=== PATIENT | male | born 1975 | race Caucasian/White ===

== ENCOUNTER 2020-05-29 10:46 | Outpatient (CLI) | payer BC ==
--- NOTE | 2020-05-29 11:42 | MRI ---
MRI lumbar spine noncontrast: HISTORY: Radiculopathy, left-sided with radiation down the left leg and to the left knee. Associated pain. Sta tus post lifting injury and twisting injury. COMPARISON: None FINDINGS: Appropriate T1 marrow signal intensity of the lumbar vertebra. Lumbar spine vertebral body height is maintained. There is no fracture. There is no significant STIR hyperintensity to suggest ligamentous injury or vertebral body edema. Straightening of lumbar lordosis is presumed to be positi onal Appropriate signal intensity in the visualized paraspinal muscles and solid organs. Conus medullaris terminates at the superior aspect of L1. T12-L1:Adequate disc hydration. No posterior disc abnormality. No significant central canal stenosis. Patent bilateral neural foramina. L1-L2:Adequate disc hydration. No posterior disc abnormalities. No significant central canal stenosis . Patent bilateral neural foramina. L2-L3:Adequate disc hydration. No posterior disc abnormality. No significant central canal stenosis. Patent bilateral neural foramina. L3-L4:Adequate disc hydration. Broad-based disc bulge minimally contacts the ventral thecal sac. Mini mal ligamentum flavum thickening and facet hypertrophy. No significant central canal stenosis. Patent bilateral neural foramina. L4-L5:Disc desiccation without significant loss of disc space height. There is a broad-based disc bul ge with disc herniation in the left and right subarticular zones. There is inferior disc migration in the left subarticular zone. There is mild ligamentum flavum thickening and facet hypertrophy. Over all there is mild central canal stenosis. There is contact upon the traversing right L5 nerve root without significant obscuration. There is near complete obscuration of the traversing left L5 nerve r oot secondary to disc material. Mild to moderate bilateral neural foraminal narrowing. L5-S1:Minimal disc desiccation without significant loss of disc space height. Broad-based disc bulge abuts the thecal sac and encroaches upon the left and right subarticular zone. There is contact upon bilateral traversing S1 nerve roots, right greater than left. There is mass effect without obscu ration of the traversing right S1 nerve root. No significant mass effect upon the traversing left S1 nerve root. Moderate bilateral neural foraminal narrowing due to disc material. IMPRESSION: Multilevel degenerative changes of the cervical spine as detailed above. Transcribed Date/Time: 05/29/2020 11:49 AM
== END 2020-05-29 10:47 | disposition home or self-care (01) ==
LOC: SCSMRI 10:46
PROVIDERS: ATTEND Neurological Surgery
DX: M54.16 Radiculopathy, lumbar region (principal); M47.812 Spondylosis without myelopathy or radiculopathy, cervical region
CPT/HCPCS: 72148

== ENCOUNTER 2020-06-29 15:32 | Outpatient (CLI) | payer BC ==
[2020-06-30 01:24] LABS: SARS-CoV-2 PCR by NAA Not Detected (NotDetected)
== END 2020-06-29 15:33 | disposition home or self-care (01) ==
LOC: LABBT 15:32
PROVIDERS: ATTEND Neurological Surgery
DX: Z01.812 Encounter for preprocedural laboratory examination (principal); M51.16 Intervertebral disc disorders with radiculopathy, lumbar region; Z20.822 Contact with and (suspected) exposure to COVID-19
CPT/HCPCS: 87635; U0003; U0005

== ENCOUNTER 2020-07-04 05:37 | Day surgery (SDC) | payer BC ==
[2020-07-03 09:37] VITALS: BMI 29.2
[2020-07-04] MEDS ORDERED: EPINEPHrine 1 MG/ML AMP ONE (06:38)
[2020-07-04] MEDS ORDERED: Bupivacaine PF 0.5% 30 ML VIAL ONE (06:38)
[2020-07-04] MEDS ORDERED: Thrombin 5000 UNITS/5 ML VIAL ONE (06:38)
[2020-07-04] MEDS ORDERED: Fentanyl 250 MCG/5 ML VIAL ONE (06:41)
[2020-07-04 06:43] LABS: Anion Gap 13 mmol/L (10-20); BUN (Urea Nitrogen) 14 mg/dL (8.9-20.6); Calc. Creatinine Clearance 140 mL/min (70-130); Calcium 9.4 mg/dL (7.8-10.44); Carbon Dioxide 30 mmol/L (22-29); Chloride 101 mmol/L (98-107); Glucose 217 mg/dL (70-105); Potassium 4.1 mmol/L (3.5-5.1); Sodium 140 mmol/L (136-145)
[2020-07-04] MEDS ORDERED: Midazolam HCl 2 mg/2 ml Vial ONE (06:55)
[2020-07-04] MEDS ORDERED: PHENYLEPHRINE-NS 100 MCG/ML 10 ML SYRINGE ONE (07:03)
[2020-07-04] MEDS ORDERED: PROPOFOL 200 MG/20 ML VIAL ONE (07:03)
[2020-07-04] MEDS ORDERED: Rocuronium Bromide 10 MG/ML (10ML VIAL) ONE (07:03)
[2020-07-04] MEDS ORDERED: Dexamethasone 20 MG/5 ML VIAL ONE (07:03)
[2020-07-04] MEDS ORDERED: Glycopyrrolate 0.2 MG/ML 5 ML SYRINGE ONE (07:03)
[2020-07-04] MEDS ORDERED: Lidocaine 1% PF 5 ML VIAL ONE (07:03)
[2020-07-04] MEDS ORDERED: Ketorolac Tromethamine 30 MG/ML VIAL ONE (07:03)
[2020-07-04] MEDS ORDERED: Ondansetron PF 4 MG/2 ML Vial ONE (07:03)
[2020-07-04] MEDS ORDERED: Tamsulosin HCl 0.4 MG CAP ONE (08:45)
[2020-07-04] MEDS ORDERED: Fentanyl 100 MCG/2 ML VIAL ONE (08:45)
== END 2020-07-04 10:15 | disposition home or self-care (01) ==
LOC: SDC 05:37
PROVIDERS: ATTEND Neurological Surgery
PROC: 0SB20ZZ Excision of Lumbar Vertebral Disc, Open Approach (ICD-10-PCS; principal; 2020-07-04)
DX: M51.16 Intervertebral disc disorders with radiculopathy, lumbar region (principal); E11.9 Type 2 diabetes mellitus without complications; Z79.84 Long term (current) use of oral hypoglycemic drugs; Z79.899 Other long term (current) drug therapy; Z91.011 Allergy to milk products
CPT/HCPCS: 36415; 76000; 80048; J0171; J0690; J1100; J1885; J2250; J2405; J2704; J3010; S0020